=== PATIENT | male | born 1970 | race Caucasian/White ===

== ENCOUNTER 2021-11-29 15:12 | Emergency (ER) | payer BC ==
[~2021-11-29] VITALS: Ht 182.9 cm; Wt 83.9 kg
--- NOTE | 2021-11-29 15:20 | NUR ---
Pt to bed #2. Pt is A&Ox4. C/o chest pain that 7/10 and radiates to left arm that started at 10am. All neuro checks within normal limits. EKG done and results were normal. Connected pt to security monitor. VSS. Bed in lowest position. Pt ambulatory with steady gait. Skin intact. Pupils PERRLA. No sob and enies n/v.
[2021-11-29 15:25] VITALS: BP_SYST 155
--- NOTE | 2021-11-29 15:32 | NUR ---
Chest X-Ray being done at bedside.
--- NOTE | 2021-11-29 15:51 | NUR ---
medical records technician at bedside drawing blood.
[2021-11-29 16:32] LABS: BASOPHILS # (AUTO) 0.1 K/uL (0.0-0.2); BASOPHILS % (AUTO) 1.1 % (0.0-2.0); EOSINOPHILS # (AUTO) 0.1 K/uL (0.0-0.4); EOSINOPHILS % (AUTO) 1.3 % (0.0-4.0); HEMATOCRIT 43.3 % (36-54); HEMOGLOBIN 14.9 g/dL (14.0-18.0); LYMPHOCYTES # (AUTO) 1.3 K/uL (1.0-5.5); LYMPHOCYTES % (AUTO) 27.2 % (20.5-51.5); MEAN CORPUSCULAR HEMOGLOBIN 30 pg (27-31); MEAN CORPUSCULAR HGB CONC 35 % (32-36); MEAN CORPUSCULAR VOLUME 88 fL (79.0-98.0); MONOCYTES # (AUTO) 0.4 K/uL (0.0-1.0); MONOCYTES % (AUTO) 7.7 % (1.7-9.3); NEUTROPHILS % (AUTO) 62.7 % (40.0-70.0); PLATELET COUNT (AUTO) 191 K/uL (130-430); RED BLOOD CELL COUNT(AUTO) 4.93 MIL/uL (4.2-6.2); RED CELL DISTRIBUTION WIDTH 12.4 % (9.0-15.0); WHITE BLOOD COUNT (AUTO) 4.8 K/uL (4.8-10.8)
[2021-11-29 16:49] LABS: CALCIUM 9.7 mg/dL (8.4-11.0); CREATININE 0.92 mg/dL (0.55-1.30)
[2021-11-29 17:00] LABS: TOTAL BILIRUBIN 0.4 mg/dL (0.0-1.0)
--- NOTE | 2021-11-29 19:02 | NUR ---
Second EKG done and results were given to Dr. Quijano. weed science research technician at bedside to draw second troponin.
--- NOTE | 2021-11-29 19:22 | NUR ---
Report given to Moshe CHAMBERS to assume care.
--- NOTE | 2021-11-29 20:27 | NUR ---
Patient given written and verbal discharge instructions and verbalizes understanding. ER MD discussed with patient the results and treatment provided. Patient in stable condition. ID arm band removed. NO Rx of given. Patient educated on pain management and to follow up with PMD. Pain Scale 0/10. Opportunity for questions provided and answered. Medication side effect fact sheet provided.
[2021-11-29 20:28] VITALS: BP_SYST 134
== END 2021-11-29 20:28 | disposition home or self-care (01) ==
LOC: SED 15:12
DX: R07.89 Other chest pain (principal); I10 Essential (primary) hypertension
CPT/HCPCS: 36415; 71045; 80053; 83880; 84484; 85025; 93005; 99285